=== PATIENT | female | born 2000 | race Caucasian/White ===

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

== ENCOUNTER 2022-03-12 12:05 | Emergency (ER) | payer MEDICAID ==
[~2022-03-12 12:05] MED LIST changes: +LORA-269 PO
== END 2022-03-12 13:11 | disposition left against medical advice (07) ==
LOC: ER 12:05
DX: R07.81 Pleurodynia (principal); Z53.21 Procedure and treatment not carried out due to patient leaving prior to being seen by health care provider

== ENCOUNTER 2022-05-17 14:18 | Emergency (ER) | payer MEDICAID ==
[~2022-05-17] VITALS: Ht 152.4 cm; Wt 47.7 kg
[2022-05-17 14:36] VITALS: BP 108/67
--- NOTE | 2022-05-17 18:13 | NUR ---
BLANCA BONILLA NOTIFIED OF COMPLETED GENERAL ASSESSMENT FOR PT.
== END 2022-05-17 18:31 | disposition left against medical advice (07) ==
LOC: ER 14:18
DX: N64.4 Mastodynia (principal); Z53.21 Procedure and treatment not carried out due to patient leaving prior to being seen by health care provider

== ENCOUNTER 2022-11-18 02:44 | Emergency (ER) | payer MEDICAID ==
[~2022-11-18] VITALS: Ht 152.4 cm; Wt 45.5 kg
[2022-11-18 02:53] VITALS: BP 140/88
[2022-11-18 03:12] LABS: BASOPHILS # (AUTO) 0.1 X10'3 (0-0.2); BASOPHILS % (AUTO) 0.4 % (0-1); EOSINOPHILS # (AUTO) 0.2 X10'3 (0-0.9); HEMATOCRIT 37.7 % (35.0-45.0); HEMOGLOBIN 12.3 g/dl (12.0-16.0); LYMPHOCYTES # (AUTO) 2.1 X10'3 (1.1-4.8); LYMPHOCYTES % (AUTO) 12.4 % (21-51); MEAN CORPUSCULAR HEMOGLOBIN 30.7 PG (27.0-31.0); MEAN CORPUSCULAR HGB CONC 32.7 g/dL (33.0-36.5); MEAN PLATELET VOLUME 8.7 FL (7.4-10.4); MONOCYTES # (AUTO) 1.3 X10'3 (0-0.9); MONOCYTES % (AUTO) 7.2 % (2-12); NEUTROPHILS # (AUTO) 13.7 X10'3 (1.8-7.7); PLATELET COUNT 337 X10'3 (140-440); RED BLOOD COUNT 4.01 X10'6 (4.20-5.60); RED CELL DISTRIBUTION WIDTH 13.7 % (11.5-14.5); WHITE BLOOD COUNT 17.3 X10'3 (4.5-11.0)
[2022-11-18 03:30] LABS: ALANINE AMINOTRANSFERASE 22 U/L (12-78); ALBUMIN 4.3 G/DL (3.4-5.0); ALBUMIN/GLOBULIN RATIO 1.2 (1.1-1.5); ALKALINE PHOSPHATASE 83 IU/L (20-180); ANION GAP 6 (8-16); ASPARTATE AMINO TRANSFERASE 21 U/L (10-37); BILIRUBIN,TOTAL 0.3 MG/DL (0.1-1.0); BLOOD UREA NITROGEN 5 MG/DL (7-18); BUN/CREATININE RATIO 7.2 (10.0-20.0); CALCIUM 8.8 MG/DL (8.5-10.1); CHLORIDE 104 MMOL/L (99-107); CREATININE 0.69 MG/DL (0.40-0.90); GLUCOSE 115 MG/DL (70-104); SODIUM 137 MMOL/L (135-145); TOTAL CARBON DIOXIDE 27.3 MMOL/L (24-32); TOTAL PROTEIN 7.8 G/DL (6.4-8.2); eGFR > 90 ML/MIN
[2022-11-18 03:37] LABS: MAGNESIUM 2.2 MG/DL (1.5-2.4)
[2022-11-18] MEDS ORDERED: POTASSIUM BICARB 20meq eff tab 20 MEQ TABLET.EFF PO ONE (04:50)
== END 2022-11-18 05:42 | disposition left against medical advice (07) ==
LOC: ER 02:45
DX: R07.89 Other chest pain (principal); R07.0 Pain in throat; Z53.21 Procedure and treatment not carried out due to patient leaving prior to being seen by health care provider
CPT/HCPCS: 36415; 71046; 80053; 83735; 83880; 84484; 85025; 93005; 99281

== ENCOUNTER 2023-02-19 18:25 | Emergency (ER) | payer MEDICAID ==
[~2023-02-19] VITALS: Ht 152.4 cm; Wt 47.7 kg
--- NOTE | 2023-02-19 19:10 | NUR ---
Call to [facility], spoke with Kristina in dispatch, officer to call and follow up. Per dispatch, report was taken at the scene by day shift officer.
--- NOTE | 2023-02-19 19:24 | NUR ---
Spoke with Officer Lambert from [employer] regarding case, per Officer, based on findings at scene and report completed by their agency, a SART case has not been suggested nor approved. )
[2023-02-19 20:54] LABS: BILIRUBIN,URINE NEGATIVE (Neg); COLOR,URINE STRAW (Yellow); GLUCOSE, URINE NEGATIVE (Neg); KETONES,URINE NEGATIVE (Neg); LEUKOCYTE ESTERASE ,URINE NEGATIVE (Neg); NITRITES, URINE NEGATIVE (Neg); OCCULT BLOOD,URINE TRACE-INTACT (Neg); PROTEIN,URINE NEGATIVE (Neg); UROBILINOGEN,URINE 0.2 E.U/dL (0.2-1.0)
[2023-02-19 20:55] LABS: URINE HCG NEGATIVE (NEG)
[2023-02-19 20:57] LABS: UA COLLECTION TYPE CLN CATCH MIDSTREAM
[2023-02-19 21:02] LABS: BACTERIA,URINE FEW /HPF (Neg); CLARITY,URINE SLIGHTLY CLOUDY (Clear); MUCUS STRANDS FEW /LPF (Neg); RBC,URINE 0-2 /HPF (0-2); SQUAMOUS EPITHELIAL CELL,UR FEW /LPF (FEW); WBC,URINE NONE SEEN /HPF (0-4)
--- NOTE | 2023-02-19 21:22 | NUR ---
A SART CASE BEEN APPROVED
[2023-02-19] MEDS ORDERED: LIDOcaine 1% W/epiNEPHrine 1:100,000 20ml vial SQ ONE (22:30)
[2023-02-19] MEDS ORDERED: LORazepam 2 mg/ml vial IV ONE (22:30)
--- NOTE | 2023-02-19 22:52 | NUR ---
THIS RN ENTERED PTS EMAR AT REQUEST OF SO MEDS COULD BE PULLED AT REQUEST OF CHAR NURSE. SPOKE WITH [employer]DEPENDENT [employer] REGARDING THIS MATTER. PER INDEPENDENT [employer] CHAR NURSE WILL PULL MEDS
[2023-02-19] MEDS ORDERED: LORazepam 1 MG tablet PO ONE (23:15)
[2023-02-19] MEDS ORDERED: azithromycin 250mg tablet PO ONE (23:35)
[2023-02-19] MEDS ORDERED: CefTRIAXone 500MG IM Kit w/LIDOcaine (for pt below or = to 150kg) IM ONE (23:35)
[2023-02-19] MEDS ORDERED: LEVONORGESTREL 1.5MG tablet 1.5 MG TABLET PO ONE (23:35)
[2023-02-19] MEDS ORDERED: TINIDAZOLE 500 MG TABLET PO ONE (23:35)
[2023-02-20 01:17] LABS: BASOPHILS # (AUTO) 0.1 X10'3 (0-0.2); BASOPHILS % (AUTO) 0.5 % (0-1); EOSINOPHILS % (AUTO) 0.4 % (0-6); HEMATOCRIT 37.5 % (35.0-45.0); HEMOGLOBIN 12.5 g/dl (12.0-16.0); LYMPHOCYTES # (AUTO) 2.7 X10'3 (1.1-4.8); LYMPHOCYTES % (AUTO) 22.7 % (21-51); MEAN CORPUSCULAR HEMOGLOBIN 30.5 PG (27.0-31.0); MEAN CORPUSCULAR HGB CONC 33.2 g/dL (33.0-36.5); MEAN CORPUSCULAR VOLUME 91.8 FL (78-98); MEAN PLATELET VOLUME 8.7 FL (7.4-10.4); MONOCYTES # (AUTO) 0.9 X10'3 (0-0.9); MONOCYTES % (AUTO) 7.7 % (2-12); NEUTROPHILS # (AUTO) 8.1 X10'3 (1.8-7.7); NEUTROPHILS % (AUTO) 68.7 % (42-75); PLATELET COUNT 315 X10'3 (140-440); RED BLOOD COUNT 4.08 X10'6 (4.20-5.60); RED CELL DISTRIBUTION WIDTH 14.1 % (11.5-14.5); WHITE BLOOD COUNT 11.7 X10'3 (4.5-11.0)
[2023-02-20 01:26] LABS: HCG SERUM QL NEGATIVE
[2023-02-20] MEDS ORDERED: iohexol 350MG/ML 100ml bottle IV ONE (01:31)
[2023-02-20 01:32] LABS: ALANINE AMINOTRANSFERASE 22 U/L (12-78); ALBUMIN 3.7 G/DL (3.4-5.0); ALBUMIN/GLOBULIN RATIO 0.9 (1.1-1.5); ALKALINE PHOSPHATASE 102 IU/L (20-180); ANION GAP 12 (8-16); ASPARTATE AMINO TRANSFERASE 32 U/L (10-37); BILIRUBIN,TOTAL 0.4 MG/DL (0.1-1.0); BLOOD UREA NITROGEN 9 MG/DL (7-18); BUN/CREATININE RATIO 12.9 (10.0-20.0); CALCIUM 8.3 MG/DL (8.5-10.1); CHLORIDE 103 MMOL/L (99-107); GLUCOSE 88 MG/DL (70-104); POTASSIUM 3.5 MMOL/L (3.5-5.1); SODIUM 137 MMOL/L (135-145); TOTAL CARBON DIOXIDE 22.4 MMOL/L (24-32); TOTAL PROTEIN 7.6 G/DL (6.4-8.2); eCRCL 92 ML/MIN; eGFR > 90 ML/MIN
[2023-02-20 03:00] VITALS: BP 119/81; PULSE 98; RESP 15; TEMP 99; O2SAT 98
== END 2023-02-20 03:05 | disposition home or self-care (01) ==
LOC: EEVIPCON 18:27 → ER 18:27
DX: S01.81XA Laceration without foreign body of other part of head, initial encounter (principal); Y04.8XXA Assault by other bodily force, initial encounter; Y93.89 Activity, other specified; Y92.89 Other specified places as the place of occurrence of the external cause; Y99.8 Other external cause status
CPT/HCPCS: 12013; 36415; 70450; 70498; 73060; 80053; 81001; 81025; 84703; 85025; 85610; 96372; 99285; J0696; J3490; J7030; Q9967

== ENCOUNTER 2023-04-11 17:26 | Emergency (ER) | payer MEDICAID ==
[~2023-04-11] VITALS: Ht 152.4 cm; Wt 46.0 kg
[2023-04-11 21:57] VITALS: BP 111/72; PULSE 96; RESP 16; TEMP 99.2; O2SAT 99
[2023-04-11] MEDS ORDERED: DOXY100C77 PO (22:07)
[2023-04-11] MEDS ORDERED: MUPI22OI30 TOP (22:07)
== END 2023-04-11 22:20 | disposition home or self-care (01) ==
LOC: ER 17:27
DX: L03.211 Cellulitis of face (principal); L01.00 Impetigo, unspecified; F41.9 Anxiety disorder, unspecified; F12.90 Cannabis use, unspecified, uncomplicated; Z79.899 Other long term (current) drug therapy
CPT/HCPCS: 99283

== ENCOUNTER 2023-07-12 10:54 | Emergency (ER) | payer SELFPAY | END 2023-07-12 12:44 | disposition left against medical advice (07) | LOC: ER 10:55 | DX: O26.891 Other specified pregnancy related conditions, first trimester (principal); Z53.21 Procedure and treatment not carried out due to patient leaving prior to being seen by health care provider; Z3A.01 Less than 8 weeks gestation of pregnancy ==

== ENCOUNTER 2024-04-20 15:22 | Emergency (ER) | payer MEDICAID ==
[~2024-04-20] VITALS: Ht 154.9 cm; Wt 56.8 kg
[2024-04-20 16:11] VITALS: BP 136/94; PULSE 105; RESP 18; O2SAT 98
[2024-04-20] MEDS: sulfamethoxazole/trimethoprim DS (800/160mg) tablet PO ONE (16:39)
[2024-04-20] MEDS: LORazepam 1 MG tablet PO ONE (16:39)
[2024-04-20] MEDS: cephalexin 250mg capsule PO ONE (16:39)
[2024-04-20] MEDS ORDERED: DOXY-356 PO (16:48)
[2024-04-20 16:54] VITALS: TEMP 97.8
== END 2024-04-20 16:55 | disposition home or self-care (01) ==
LOC: ER 15:23
DX: L03.116 Cellulitis of left lower limb (principal); F15.10 Other stimulant abuse, uncomplicated; F41.9 Anxiety disorder, unspecified; F12.90 Cannabis use, unspecified, uncomplicated; Z88.0 Allergy status to penicillin; Z88.1 Allergy status to other antibiotic agents; Z79.1 Long term (current) use of non-steroidal anti-inflammatories (NSAID); Z79.899 Other long term (current) drug therapy
CPT/HCPCS: 99284

== ENCOUNTER 2024-06-26 17:20 | Emergency (ER) | payer MEDICAID ==
[~2024-06-26] VITALS: Ht 157.5 cm; Wt 55.0 kg
[2024-06-26 17:26] VITALS: TEMP 98.7
[2024-06-26 18:16] LABS: URINE AMPHETAMINE SCREEN NEGATIVE (Neg); URINE BARBITUATE SCREEN NEGATIVE (Neg); URINE BENZODIAZEPINES SCREEN NEGATIVE (Neg); URINE CANNABINOID SCREEN POSITIVE (Neg); URINE COCAINE SCREEN POSITIVE (Neg); URINE METHADONE SCREEN NEGATIVE (Neg); URINE OPIATE SCREEN NEGATIVE (Neg); URINE PHENCYCLIDINE SCREEN NEGATIVE (Neg)
[2024-06-26] MEDS: LORazepam 2 mg/ml vial IM ONE (19:35)
[2024-06-26] MEDS ORDERED: LORA-269 PO (19:53)
[2024-06-26 20:25] VITALS: BP 112/88; PULSE 99; RESP 18; O2SAT 97
== END 2024-06-26 20:28 | disposition home or self-care (01) ==
LOC: ER 17:20
DX: F41.9 Anxiety disorder, unspecified (principal); F14.10 Cocaine abuse, uncomplicated; F12.90 Cannabis use, unspecified, uncomplicated; Z88.1 Allergy status to other antibiotic agents; Z88.0 Allergy status to penicillin; Z79.899 Other long term (current) drug therapy
CPT/HCPCS: 80305; 93005; 96372; 99284; J2060